=== PATIENT | female | born 1930 | race Caucasian/White ===

== ENCOUNTER 2016-10-26 21:09 | Inpatient (IN) | payer MEDICARE, OTHER ==
[2016-10-26] MEDS ORDERED: ACETAMINOPHEN IV (For NPO) 1,000 MG in EMPTY BAG 1 BAG IVPB STA (21:50)
[2016-10-26] MEDS ORDERED: IPRATROPIUM-ALBUTEROL 3 ML NEB INHALATION STA (21:53)
[2016-10-26] MEDS: SODIUM CHLORIDE 0.9% 500 ML IV SCH (21:59)
--- NOTE | 2016-10-26 22:00 | ED ---
General Adult HPI - General Chief complaint: Altered Mental Status Stated complaint: Altered mental status Time Seen by Provider: 10/26/16 21:25 Source: patient, EMS, RN notes reviewed Mode of arrival: EMS Limitations: altered mental status - History of Present Illness Initial comments: Patient is a pleasant 86-year-old female presenting to the emergency department for not feeling well. Patient is not forthcoming information and is a poor historian. Patient reportedly did have fever prior to arrival. Patient does admit to having somewhat of a cough. Patient questions if she was recently in the hospital. - Related Data Home Medications Medication Instructions Recorded Confirmed Aspirin EC [Ecotrin] 81 mg PO DAILY 12/11/14 10/26/16 Atorvastatin [Lipitor] 20 mg PO HS 12/11/14 10/26/16 Gabapentin [Neurontin] 300 mg PO TID 12/11/14 10/26/16 HYDROcodone/APAP 10-325MG [[place] 1 tab PO QID 12/11/14 10/26/16 10] Montelukast [Singulair] 10 mg PO HS 12/11/14 10/26/16 Multivitamins, Thera [Theragran] 1 each PO DAILY@1200 12/11/14 10/26/16 Omeprazole [PriLOSEC] 20 mg PO DAILY 12/11/14 10/26/16 Timolol 0.25% Ophth Soln [Timoptic] 1 drop BOTH EYES DAILY 12/11/14 10/26/16 rOPINIRole HCL [Requip] 1 mg PO DAILY 12/11/14 10/26/16 Acetaminophen Tab [Tylenol Tab] 650 mg PO Q6H PRN 10/26/16 10/26/16 Allevyn Patch 1 patch TOPICAL Q12H 10/26/16 10/26/16 Ammonium Lactate Lotion 1 applic TOPICAL BID 10/26/16 10/26/16 [Lac-Hydrin 12% Lotion] Benzonatate [Tessalon Perles] 200 mg PO TID 10/26/16 10/26/16 Budesonide [Pulmicort] 1 mg INHALATION RT-BID 10/26/16 10/26/16 Chlorthalidone [Hygroton] 25 mg PO DAILY 10/26/16 10/26/16 Clindamycin HCl 300 mg PO Q8H 10/26/16 10/26/16 Dimethicone/Zinc Oxide [Inzo Zinc 1 applic TOPICAL BID 10/26/16 10/26/16 Oxide Barrier Cream] Doxycycline Hyclate 100 mg PO BID 10/26/16 10/26/16 Insulin Aspart [NovoLOG] 15 unit SQ AC-LUNCH 10/26/16 10/26/16 Insulin Aspart [NovoLOG] 15 unit SQ AC-SUPPER 10/26/16 10/26/16 Insulin Aspart [NovoLOG] 18 unit SQ AC-BRKFST 10/26/16 10/26/16 Insulin Detemir [Levemir] 30 unit SQ BID 10/26/16 10/26/16 Ipratropium-Albuterol Nebulize 3 ml INHALATION RT-Q4H 10/26/16 10/26/16 [Duoneb 0.5 mg-3 mg/3 ml Soln] Isosorbide Mononitrate ER [Imdur] 60 mg PO DAILY 10/26/16 10/26/16 Latanoprost [Xalatan 0.005%] 1 drop BOTH EYES HS 10/26/16 10/26/16 Levothyroxine Sodium [Synthroid] 125 mcg PO DAILY 10/26/16 10/26/16 Losartan Potassium [Cozaar] 100 mg PO DAILY 10/26/16 10/26/16 Melatonin 6 mg PO HS 10/26/16 10/26/16 Metoprolol Tartrate [Lopressor] 12.5 mg PO DAILY 10/26/16 10/26/16 Nitroglycerin Sl Tabs [Nitrostat] 0.4 mg SUBLINGUAL Q5M PRN 10/26/16 10/26/16 Oxybutynin Chloride [Ditropan] 15 mg PO HS 10/26/16 10/26/16 Oyster-Maurice 500mg Tab 1 tab PO DAILY 10/26/16 10/26/16 Sennosides-Docusate Sodium 1 tab PO DAILY 10/26/16 10/26/16 [Senokot-S] amLODIPine [Norvasc] 5 mg PO DAILY 10/26/16 10/26/16 guaiFENesin [Mucinex] 600 mg PO Q12H 10/26/16 10/26/16 hydrALAZINE HCL [Apresoline] 100 mg PO Q8H 10/26/16 10/26/16 predniSONE 10 mg PO DAILY 10/26/16 10/26/16 Allergies Allergy/AdvReac Type Severity Reaction Status Date / Time amoxicillin Allergy Rash/Hives Verified 10/26/16 21:24 lisinopril Allergy Wheezing Verified 10/26/16 21:24 Sulfa (Sulfonamide Allergy Rash/Hives Verified 10/26/16 21:24 Antibiotics) alprazolam [From Xanax] AdvReac Hallucinati Verified 10/26/16 21:24 ons morphine AdvReac Hallucinati Verified 10/26/16 21:24 ons Review of Systems ROS Statement: Those systems with pertinent positive or pertinent negative responses have been documented in the HPI. ROS Other: All systems not noted in ROS Statement are negative. Constitutional: Reports: fever Eyes: Denies: eye pain ENT: Denies: ear pain Respiratory: Reports: cough Cardiovascular: Denies: chest pain Endocrine: Reports: fatigue Gastrointestinal: Denies: abdominal pain Genitourinary: Denies: dysuria Musculoskeletal: Denies: back pain Skin: Denies: rash Neurological: Reports: weakness Past Medical History Past Medical History: Asthma, Cancer, COPD, Diabetes Mellitus, Eye Disorder, GERD/Reflux, Hyperlipidemia, Hypertension, Sleep Apnea/CPAP/BIPAP, Thyroid Disorder Additional Past Medical History / Comment(s): HX OF UTERINE CANCER, SLEEP APNEA (DOES NOT USE MACHINE), OXYGEN 2L AT HS, STRESS INCONTINENCE-WEARS DEPENDS, DAUGHTER STATES SHE HAS A SORE BY RECTAL AREA History of Any Multi-Drug Resistant Organisms: MRSA, None Reported Date of last positivie culture/infection: 12/11/2014 MDRO Source:: BRONCH WASH Past Surgical History: Heart Catheterization With Stent, Hysterectomy, Joint Replacement Additional Past Surgical History / Comment(s): BILAT KELEY AND TKA Past Anesthesia/Blood Transfusion Reactions: No Reported Reaction Date of Last Stent Placement:: Past Psychological History: No Psychological Hx Reported Smoking Status: Never smoker Past Alcohol Use History: Rare Past Drug Use History: None Reported - Past Family History Daughter(s) Family Medical History: Cancer Additional Family Medical History / Comment(s): UTERINE CA Son(s) Family Medical History: Cancer Additional Family Medical History / Comment(s): LUNG CA Sister(s) Family Medical History: Cancer Additional Family Medical History / Comment(s): LIVER CA General Exam Limitations: altered mental status General appearance: other (Drowsy but arousable to answer simple questions and follow simple commands) Head exam: Present: atraumatic Eye exam: Present: normal appearance, PERRL ENT exam: Present: normal oropharynx Neck exam: Present: normal inspection Respiratory exam: Present: wheezes Cardiovascular Exam: Present: regular rate, normal rhythm GI/Abdominal exam: Present: soft. Absent: tenderness Extremities exam: Present: normal inspection Neurological exam: Present: alert, CN II-XII intact Expanded Patient oriented to: Present: person, place. Absent: time Cranial nerves: EOM's Intact: Normal Motor strength exam: RUE: 5, LUE: 5, RLE: 5, LLE: 5 Eye Response: (4) open spontaneously Motor Response: (6) obeys commands Verbal Response: (4) confused conversation Psychiatric exam: Present: normal affect, normal mood Skin exam: Absent: rash Course Vital Signs 10/26/16 10/26/16 10/26/16 21:33 22:17 22:24 Temperature 99.4 F Pulse Rate 94 94 94 Respiratory 20 Rate Blood Pressure 95/44 O2 Sat by Pulse 92 L Oximetry 10/26/16 23:16 Temperature Pulse Rate 95 Respiratory 22 Rate Blood Pressure 100/44 O2 Sat by Pulse 93 L Oximetry EKG Findings - EKG Comments: EKG Findings:: Sinus rhythm at 88. CT 1:30. QRS 96. QT 374. QTC 452. Normal axis. LVH with repolarization change. Medical Decision Making - Medical Decision Making Patient reevaluated and not significantly changed. Daughter updated on results and plan. Case was discussed in detail with Dr. Valadez, who will admit for Dr. Hollis. Patient does meet sepsis criteria diagnosed at 11:50 PM. IV antibiotics will be started. - Lab Data Result diagrams: 10/26/16 22:15 10/26/16 22:15 Lab Results 10/26/16 10/26/16 10/26/16 Range/Units 22:05 22:15 22:15 WBC (3.8-10.6) k/uL RBC 4.04 (3.80-5.40) m/uL Hgb 10.4 L (11.4-16.0) gm/dL Hct 34.0 (34.0-46.0) % MCV 84.1 (80.0-100.0) fL MCH 25.8 (25.0-35.0) pg MCHC 30.7 L (31.0-37.0) g/dL RDW 18.6 H (11.5-15.5) % Plt Count 98 L (150-450) k/uL Neutrophils % 95 % Lymphocytes % 3 % Monocytes % 2 % Eosinophils % 0 % Basophils % 0 % Neutrophils # 26.5 H (1.3-7.7) k/uL Lymphocytes # 0.8 L (1.0-4.8) k/uL Monocytes # 0.5 (0-1.0) k/uL Eosinophils # 0.0 (0-0.7) k/uL Basophils # 0.0 (0-0.2) k/uL Manual Slide Review Performed Hypochromasia Slight Anisocytosis Slight PT (9.0-12.0) sec INR (<1.1) APTT (22.0-30.0) sec Sodium (137-145) mmol/L Potassium (3.5-5.1) mmol/L Chloride (98-107) mmol/L Carbon Dioxide (22-30) mmol/L Anion Gap mmol/L BUN (7-17) mg/dL Creatinine (0.52-1.04) mg/dL Est GFR (MDRD) Af Amer (>60 ml/min/1.73 sqM) Est GFR (MDRD) Non-Af (>60 ml/min/1.73 sqM) Glucose (74-99) mg/dL Plasma Lactic Acid Thomas 1.4 (0.7-2.0) mmol/L Calcium (8.4-10.2) mg/dL Total Bilirubin (0.2-1.3) mg/dL AST (14-36) U/L ALT (9-52) U/L Alkaline Phosphatase (38-126) U/L Total Creatine Kinase <20 L (30-135) U/L CK-MB (CK-2) 0.3 (0.0-2.4) ng/mL CK-MB (CK-2) Rel Index 0.0 Troponin I 0.080 H* (0.000-0.034) ng/mL Total Protein (6.3-8.2) g/dL Albumin (3.5-5.0) g/dL Cortisol ug/dL 02/20/17 02/20/17 Range/Units 22:15 22:15 WBC (3.8-10.6) k/uL RBC (3.80-5.40) m/uL Hgb (11.4-16.0) gm/dL Hct (34.0-46.0) % MCV (80.0-100.0) fL MCH (25.0-35.0) pg MCHC (31.0-37.0) g/dL RDW (11.5-15.5) % Plt Count (150-450) k/uL Neutrophils % % Lymphocytes % % Monocytes % % Eosinophils % % Basophils % % Neutrophils # (1.3-7.7) k/uL Lymphocytes # (1.0-4.8) k/uL Monocytes # (0-1.0) k/uL Eosinophils # (0-0.7) k/uL Basophils # (0-0.2) k/uL Manual Slide Review Hypochromasia Anisocytosis PT 11.3 (9.0-12.0) sec INR 1.1 (<1.1) APTT 24.3 (22.0-30.0) sec Sodium 138 (137-145) mmol/L Potassium 5.9 H (3.5-5.1) mmol/L Chloride 101 (98-107) mmol/L Carbon Dioxide 30 (22-30) mmol/L Anion Gap 7 mmol/L BUN 33 H (7-17) mg/dL Creatinine 1.20 H (0.52-1.04) mg/dL Est GFR (MDRD) Af Amer 51 (>60 ml/min/1.73 sqM) Est GFR (MDRD) Non-Af 42 (>60 ml/min/1.73 sqM) Glucose 160 H (74-99) mg/dL Plasma Lactic Acid Thomas (0.7-2.0) mmol/L Calcium 8.8 (8.4-10.2) mg/dL Total Bilirubin 1.2 (0.2-1.3) mg/dL AST 37 H (14-36) U/L ALT 23 (9-52) U/L Alkaline Phosphatase 59 (38-126) U/L Total Creatine Kinase (30-135) U/L CK-MB (CK-2) (0.0-2.4) ng/mL CK-MB (CK-2) Rel Index Troponin I (0.000-0.034) ng/mL Total Protein 5.0 L (6.3-8.2) g/dL Albumin 2.5 L (3.5-5.0) g/dL Cortisol 18 ug/dL - Radiology Data Radiology results: report reviewed (Computed tomography scan of the brain shows atrophy and chronic small vessel disease. 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
[2016-10-26 22:53] LABS: Anisocytosis Slight; Basophils % (A) 0 %; CH 25.9; CHCM 30.9; Eosinophils % (A) 0 %; HGB 10.4 gm/dL (11.4-16.0); Hypochromasia Slight; Luc # (Auto) 0.06; Luc % (Auto) 0; Lymphocytes # (A) 0.8 k/uL (1.0-4.8); Lymphocytes % (A) 3 %; MCH 25.8 pg (25.0-35.0); MCHC 30.7 g/dL (31.0-37.0); MCV 84.1 fL (80.0-100.0); Mean Platelet Volume 7.6; Monocytes # (A) 0.5 k/uL (0-1.0); Monocytes % (A) 2 %; Neutrophils # (A) 26.5 k/uL (1.3-7.7); Neutrophils % (A) 95 %; RBC 4.04 m/uL (3.80-5.40); RDW 18.6 % (11.5-15.5); WBC (Perox) 28.35
[2016-10-26 22:56] LABS: Creatine Kinase <20 U/L (30-135); INR 1.1 (<1.1); Partial Thromboplastin Time 24.3 sec (22.0-30.0); Prothrombin Time 11.3 sec (9.0-12.0)
[2016-10-26 22:59] LABS: Calcium 8.8 mg/dL (8.4-10.2); Total Bilirubin 1.2 mg/dL (0.2-1.3)
[2016-10-26 23:02] LABS: Potassium 5.9 mmol/L (3.5-5.1)
[2016-10-26 23:09] LABS: Creatine Kinase MB 0.3 ng/mL (0.0-2.4)
[2016-10-26 23:17] LABS: Manual Review Performed
--- NOTE | 2016-10-26 23:26 | XR ---
EXAMINATION TYPE: XR chest 2V DATE OF EXAM: 10/26/2016 11:21 PM COMPARISON: 10/06/2016 HISTORY: Fever TECHNIQUE: Frontal and lateral views of the chest are obtained. FINDINGS: There are patchy infiltrates in both lower lobes and worse on the right side. There is mil d pulmonary congestion. Heart is enlarged. Thoracic aorta is atheromatous. There are chest leads. The re is blunting of costophrenic angles. IMPRESSION: There is evidence for combined lower lobe pneumonia and mild heart failure. This is new compared to old chest x-ray. Cardiomegaly. Small pleural effusions.
--- NOTE | 2016-10-26 23:29 | CT ---
EXAMINATION TYPE: CT brain wo con DATE OF EXAM: 10/26/2016 11:13 PM COMPARISON: 10/06/2012 HISTORY: Weakness and altered mental status. CT DLP: 909.40 mGycm Automated exposure control for dose reduction was used. FINDINGS: There is cerebral cortical atrophy. There is patchy hypodensity in the periventricular white matter. There is mild hypodensity in the right occipital lobe cortex. There is mild enlargement of the ventri cles. Calvarium is intact. There is mild mucosal thickening in the left maxillary sinus. IMPRESSION: Cerebral atrophy and chronic small vessel ischemia. There is probably a right occipital lobe infarct that is new compared to the old CT scan but the age of this is not clear.
[2016-10-26 23:49] LABS: Appearance,Urine Clear (Clear); Bilirubin,Urine Negative (Negative); Glucose,Urine (UA) 3+ (Negative); Ketones,Urine Negative (Negative); Leukocyte Esterase,Urine Negative (Negative); Nitrite,Urine Negative (Negative); Protein,Urine Trace (Negative); Specific Gravity,Urine 1.011 (1.001-1.035); UA Billing (MACRO vs. MICRO) CHEM; Urobilinogen,Urine <2.0 mg/dL (<2.0)
[2016-10-26] MEDS ORDERED: AZTREONAM 2 GM in SODIUM CHLORIDE 0.9% 100 ML IVPB STA (23:51)
[2016-10-26] MEDS ORDERED: PNEUMONIA PROTOCOL UTILIZED 1 EACH MISC PO PRN (23:51)
[2016-10-26] MEDS ORDERED: LEVOFLOXACIN 750MG-D5W PMX 750 MG in DEXTROSE/WATER 1 150ML.BAG IVPB STA (23:51)
[2016-10-26] MEDS ORDERED: IPRATROPIUM-ALBUTEROL 3 ML NEB INHALATION PRN (23:51)
[2016-10-27] MEDS: SODIUM CHLORIDE 0.9% 500 ML IV SCH
[2016-10-27] MEDS: SODIUM CHLORIDE 0.9% 1,000 ML IV SCH ×2 (00:16→11:15)
[2016-10-27 01:58] LABS: Glucose,Whole Blood 201 mg/dL (75-99)
[2016-10-27 02:30] LABS: WBC 28.4 k/uL (3.8-10.6)
[2016-10-27 04:03] LABS: Creatine Kinase <20 U/L (30-135)
[2016-10-27] MEDS: HEPARIN SODIUM,PORCINE 5,000 UNIT/ML 1 ML VIAL SQ SCH ×2 (04:12→09:01)
[2016-10-27 04:16] LABS: Creatine Kinase MB 0.5 ng/mL (0.0-2.4)
[2016-10-27 04:18] LABS: Troponin I 0.062 ng/mL (0.000-0.034)
[2016-10-27 05:27] VITALS: BMI 34.2
[2016-10-27 07:52] LABS: Glucose,Whole Blood 235 mg/dL (75-99)
[2016-10-27] MEDS ORDERED: AZTREONAM 2 GM in SODIUM CHLORIDE 0.9% 100 ML IVPB SCH (08:00)
[2016-10-27] MEDS ORDERED: IPRATROPIUM-ALBUTEROL 3 ML NEB INHALATION SCH (08:00)
[2016-10-27] MEDS ORDERED: ACETAMINOPHEN TAB 325 MG TAB PO PRN (08:48)
[2016-10-27] MEDS ORDERED: NITROGLYCERIN SL TABS 0.4 MG TAB SUBLINGUAL PRN (08:48)
[2016-10-27] MEDS ORDERED: [UNRECOGNIZED DRUG - OTHER] TOPICAL SCH (09:00)
[2016-10-27] MEDS ORDERED: NON-FORMULARY DRUG (Dimethicone/Zinc Oxide [Inzo Zinc Oxide Barrier Cream] 1 APPLIC) TOPICAL SCH (09:00)
[2016-10-27] MEDS ORDERED: predniSONE 10 MG TAB PO SCH (09:00)
[2016-10-27] MEDS: INSULIN DETEMIR 100 UNIT/ML 10 ML VIAL SQ SCH ×2 (09:15→22:04)
[2016-10-27] MEDS: SENNOSIDES-DOCUSATE SODIUM 1 EACH TAB PO SCH (09:15)
[2016-10-27] MEDS: HYDROcodone/APAP 10-325MG 1 EACH TAB PO PRN (09:16)
[2016-10-27] MEDS: AMMONIUM LACTATE 12% LOTION 225 GM BTL TOPICAL SCH ×2 (09:16→22:03)
[2016-10-27] MEDS: INSULIN LISPRO (humaLOG) 300 UNIT/3 ML VIAL SQ SCH ×6 (09:19→22:05)
[2016-10-27 10:30] LABS: Creatine Kinase <20 U/L (30-135)
[2016-10-27] MEDS: MULTIVITAMINS, THERA 1 EACH TAB PO SCH (10:40)
[2016-10-27] MEDS: BENZONATATE 100 MG CAP PO SCH ×3 (10:40→22:06)
[2016-10-27] MEDS: hydrALAZINE HCL 50 MG TAB PO SCH ×3 (10:41→16:19)
[2016-10-27] MEDS: TIMOLOL 0.25% OPHTH DROPS 5 ML BTL BOTH EYES SCH (10:41)
[2016-10-27] MEDS: guaiFENesin 600 MG TABLET.ER PO SCH ×2 (10:41→22:04)
[2016-10-27] MEDS: LOSARTAN 50 MG TAB PO SCH (10:42)
[2016-10-27] MEDS: GABAPENTIN 300 MG CAP PO SCH ×3 (10:42→22:06)
[2016-10-27] MEDS: ASPIRIN 81 MG CHEW PO SCH (10:42)
[2016-10-27] MEDS: ISOSORBIDE MONONITRATE ER 60 MG TAB.ER.24H PO SCH (10:42)
[2016-10-27] MEDS: LEVOTHYROXINE 125 MCG TAB PO SCH (10:42)
[2016-10-27] MEDS: METOPROLOL TARTRATE 12.5 MG TAB PO SCH (10:43)
[2016-10-27] MEDS: amLODIPine 5 MG TAB PO SCH ×2 (10:44→10:57)
[2016-10-27 10:53] LABS: Troponin I 0.048 ng/mL (0.000-0.034)
[2016-10-27] MEDS: CALCIUM CARBONATE 500 MG CHEWABLE PO SCH (10:53)
[2016-10-27] MEDS: PANTOPRAZOLE 40 MG TABLET PO SCH (10:53)
[2016-10-27 11:08] LABS: Hemoglobin A1C 8.8 % (4.2-6.1)
[2016-10-27] MEDS ORDERED: SODIUM POLYSTYRENE SULFONATE 15 GM/60 ML BOTTLE PO STA (11:11)
[2016-10-27] MEDS ORDERED: CEFEPIME 1 GM in SODIUM CHLORIDE 0.9% 50 ML IVPB SCH (11:15)
[2016-10-27 11:18] LABS: Anisocytosis Slight; CH 25.5; CHCM 28.8; HCT 30.9 % (34.0-46.0); HDW 2.44; HGB 9.2 gm/dL (11.4-16.0); Hypochromasia Marked; MCH 26.4 pg (25.0-35.0); MCHC 29.7 g/dL (31.0-37.0); MCV 88.8 fL (80.0-100.0); Mean Platelet Volume 9.3; RBC 3.47 m/uL (3.80-5.40); RDW 18.1 % (11.5-15.5); WBC 16.5 k/uL (3.8-10.6)
[2016-10-27 11:22] LABS: Calcium 8.5 mg/dL (8.4-10.2); Total Bilirubin 0.9 mg/dL (0.2-1.3); Total Protein 4.6 g/dL (6.3-8.2)
[2016-10-27] MEDS: PROMETHAZ-COD 6.25-10 MG/5 ML 5 ML CUP PO PRN ×2 (11:23→22:06)
[2016-10-27] MEDS: methylPREDNISolone SOD SUCCI 40 MG/ML 1 ML VIAL IV SCH ×2 (11:24→16:19)
[2016-10-27] MEDS: IV VANCOMYCIN PER PHARMACY 1 EACH MISC MISCELLANE SCH (11:30)
[2016-10-27 11:32] LABS: Potassium 4.1 mmol/L (3.5-5.1)
[2016-10-27 11:40] LABS: Glucose,Whole Blood 211 mg/dL (75-99)
[2016-10-27] MEDS ORDERED: VANCOMYCIN 2,000 MG in SODIUM CHLORIDE 0.9% 500 ML IVPB ONE (12:00)
[2016-10-27] MEDS: IPRATROPIUM-ALBUTEROL 3 ML NEB INHALATION SCH ×4 (12:01→23:24)
--- NOTE | 2016-10-27 13:16 | P.HPIM ---
History of Present Illness H&P Date: 10/27/16 Chief Complaint: Altered mental status This is an 86-year-old female patient of Dr. 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 She was recently hospitalized at [facility] from 10/10/2016 through 10/19/2016. She was treated for urinary tract infection , acute coronary syndrome, COPD exacerbation. She was then discharged to [facility] for subacute rehab. Patient was found to have mental status changes and was sent to [facility] emergency center for evaluation. It was noted she also had a fever at the detention. She was hypotensive in the emergency center with leukocytosis of 28.4. CAT scan of the brain showed atrophy and chronic small vessel disease. 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 Chest x-ray showed lower lobe infiltrate and possible mild heart failure and mild pleural effusion. Patient was admitted to medical floor for pneumonia, sepsis and altered mental status. Review of Systems ROS unobtainable: due to mental status Past Medical History Past Medical History: Asthma, Cancer, Heart Failure, COPD, Dementia, Diabetes Mellitus, Eye Disorder, GERD/Reflux, Hyperlipidemia, Hypertension, Renal Disease , Sleep Apnea/CPAP/BIPAP, Thyroid Disorder, Vascular Disorder Additional Past Medical History / Comment(s): HX OF UTERINE CANCER, SLEEP APNEA (DOES NOT USE MACHINE), OXYGEN 3L , STRESS INCONTINENCE-WEARS DEPENDS, chronic kidney disease stage III, vascular dementia, vocal cord dysfunction, secondary thrombocytopenia, chronic diastolic heart failure History of Any Multi-Drug Resistant Organisms: MRSA Date of last positivie culture/infection: 12/11/14 MDRO Source:: BRONCH WASH Past Surgical History: Appendectomy, Cholecystectomy, Heart Catheterization With Stent, Hysterectomy, Joint Replacement Additional Past Surgical History / Comment(s): BILAT KEELY AND TKA, bilateral cataract extraction and intraocular lens transplants, blepharoplasty Past Anesthesia/Blood Transfusion Reactions: No Reported Reaction Date of Last Stent Placement:: Past Psychological History: Depression Smoking Status: Never smoker Past Alcohol Use History: Rare Additional Past Alcohol Use History / Comment(s): Patient has been exposed to secondhand smoke most of her life. She drinks alcohol socially and rarely. No history of alcohol abuse. She is and lives with one of her daughters. She has a CPAP machine, elevated toilet seat, walker, nebulizer and home oxygen. Past Drug Use History: None Reported - Past Family History Daughter(s) Family Medical History: Cancer Additional Family Medical History / Comment(s): UTERINE CA Son(s) Family Medical History: Cancer Additional Family Medical History / Comment(s): LUNG CA Sister(s) Family Medical History: Cancer Additional Family Medical History / Comment(s): LIVER CA Father Additional Family Medical History / Comment(s): Father at age 80 from myocardial infarction. Mother Additional Family Medical History / Comment(s): Other at age 92 from heart failure. Medications and Allergies Home Medications Medication Instructions Recorded Confirmed Type Aspirin EC [Ecotrin] 81 mg PO DAILY 12/11/14 10/26/16 History Atorvastatin [Lipitor] 20 mg PO HS 12/11/14 10/26/16 History Gabapentin [Neurontin] 300 mg PO TID 12/11/14 10/26/16 History HYDROcodone/APAP 10-325MG [[place] 1 tab PO QID 12/11/14 10/26/16 History 10] Montelukast [Singulair] 10 mg PO HS 12/11/14 10/26/16 History Multivitamins, Thera [Theragran] 1 each PO DAILY@1200 12/11/14 10/26/16 History Omeprazole [PriLOSEC] 20 mg PO DAILY 12/11/14 10/26/16 History Timolol 0.25% Ophth Soln [Timoptic] 1 drop BOTH EYES DAILY 12/11/14 10/26/16 History rOPINIRole HCL [Requip] 1 mg PO DAILY 12/11/14 10/26/16 History Acetaminophen Tab [Tylenol Tab] 650 mg PO Q6H PRN 10/26/16 10/26/16 History Allevyn Patch 1 patch TOPICAL Q12H 10/26/16 10/26/16 History Ammonium Lactate Lotion 1 applic TOPICAL BID 10/26/16 10/26/16 History [Lac-Hydrin 12% Lotion] Benzonatate [Tessalon Perles] 200 mg PO TID 10/26/16 10/26/16 History Budesonide [Pulmicort] 1 mg INHALATION RT-BID 10/26/16 10/26/16 History Chlorthalidone [Hygroton] 25 mg PO DAILY 10/26/16 10/26/16 History Clindamycin HCl 300 mg PO Q8H 10/26/16 10/26/16 History Dimethicone/Zinc Oxide [Inzo Zinc 1 applic TOPICAL BID 10/26/16 10/26/16 History Oxide Barrier Cream] Doxycycline Hyclate 100 mg PO BID 10/26/16 10/26/16 History Insulin Aspart [NovoLOG] 15 unit SQ AC-LUNCH 10/26/16 10/26/16 History Insulin Aspart [NovoLOG] 15 unit SQ AC-SUPPER 10/26/16 10/26/16 History Insulin Aspart [NovoLOG] 18 unit SQ AC-BRKFST 10/26/16 10/26/16 History Insulin Detemir [Levemir] 30 unit SQ BID 10/26/16 10/26/16 History Ipratropium-Albuterol Nebulize 3 ml INHALATION RT-Q4H 10/26/16 10/26/16 History [Duoneb 0.5 mg-3 mg/3 ml Soln] Isosorbide Mononitrate ER [Imdur] 60 mg PO DAILY 10/26/16 10/26/16 History Latanoprost [Xalatan 0.005%] 1 drop BOTH EYES HS 10/26/16 10/26/16 History Levothyroxine Sodium [Synthroid] 125 mcg PO DAILY 10/26/16 10/26/16 History Losartan Potassium [Cozaar] 100 mg PO DAILY 10/26/16 10/26/16 History Melatonin 6 mg PO HS 10/26/16 10/26/16 History Metoprolol Tartrate [Lopressor] 12.5 mg PO DAILY 10/26/16 10/26/16 History Nitroglycerin Sl Tabs [Nitrostat] 0.4 mg SUBLINGUAL Q5M PRN 10/26/16 10/26/16 History Oyster-Maurice 500mg Tab 1 tab PO DAILY 10/26/16 10/26/16 History Sennosides-Docusate Sodium 1 tab PO DAILY 10/26/16 10/26/16 History [Senokot-S] amLODIPine [Norvasc] 5 mg PO DAILY 10/26/16 10/26/16 History guaiFENesin [Mucinex] 600 mg PO Q12H 10/26/16 10/26/16 History hydrALAZINE HCL [Apresoline] 100 mg PO Q8H 10/26/16 10/26/16 History predniSONE 10 mg PO DAILY 10/26/16 10/26/16 History Oxybutynin ER [Ditropan Xl] 15 mg PO HS 10/27/16 10/27/16 History Allergies Allergy/AdvReac Type Severity Reaction Status Date / Time amoxicillin Allergy Rash/Hives Verified 10/26/16 21:24 lisinopril Allergy Wheezing Verified 10/26/16 21:24 Sulfa (Sulfonamide Allergy Rash/Hives Verified 10/26/16 21:24 Antibiotics) alprazolam [From Xanax] AdvReac Hallucinati Verified 10/26/16 21:24 ons morphine AdvReac Hallucinati Verified 10/26/16 21:24 ons Physical Exam Vitals: Vital Signs Temp Pulse Pulse Resp BP BP Pulse Ox 10/27/16 08:37 76 10/27/16 07:00 97.7 F 72 21 110/73 98 10/27/16 05:58 80 10/27/16 05:47 76 10/27/16 03:15 72 20 10/27/16 02:03 97.8 F 72 20 108/48 94 L 10/27/16 01:51 94 L 10/27/16 01:06 98.6 F 72 20 98/45 96 10/27/16 00:15 98.5 F 78 18 117/49 96 Intake and Output 10/26/16 10/27/16 10/27/16 22:59 06:59 14:59 Intake Total 100 Balance 100 Intake: Oral 100 Other: # Voids 1 Weight 79.5 kg Gen: This is a obese 86-year-old female. HEENT: Head is atraumatic, normocephalic. Pupils equal, round. Sclerae is anicteric. NECK: Supple. No JVD. No lymphadenopathy. No thyromegaly. LUNGS: Scattered rhonchi throughout.. No intercostal retractions. HEART: Regular rate and rhythm. Systolic murmur. ABDOMEN: Soft. Bowel sounds are present. No masses. No tenderness. EXTREMITIES: Trace bilateral pedal edema. No calf tenderness. NEUROLOGICAL: Patient is awake, alert and oriented x2. Cranial nerves 2 through 12 are grossly intact. Results CBC & Chem 7: 10/27/16 09:28 10/27/16 09:28 Labs: Abnormal Lab Results - Last 24 Hours (Table) 10/27/16 10/27/16 10/27/16 Range/Units 01:55 03:23 07:49 POC Glucose (mg/dL) 201 H 235 H (75-99) mg/dL Total Creatine Kinase <20 L (30-135) U/L Troponin I 0.062 H* (0.000-0.034) ng/mL Thrombosis Risk Factor Assmnt - DVT/VTE Prophylaxis DVT/VTE Prophylaxis: Pharmacologic Prophylaxis ordered - Choose All That Apply Any of the Below Risk Factors Present?: Yes Each Factor Represents 1 point: Abnormal pulmonary function (COPD), Medical pt on bed rest, Obesity (BMI >25), Swollen legs (current) Other Risk Factors: Yes Each Risk Factor Represents 3 Points: Age 75 years or older Thrombosis Risk Factor Assessment Total Risk Factor Score: 7 Thrombosis Risk Factor Assessment Level: High Risk Assessment and Plan Plan: 1. Metabolic encephalopathy with pneumonia and sepsis along with mild heart failure and small pleural effusions. Continue cefepime, Levaquin and vancomycin , DuoNeb treatments every 4 hours scheduled and as needed, Tessalon Perles 3 times daily, Pulmicort twice daily, Mucinex and Phenergan with codeine, Singulair. Solu-Medrol 40 mg every 8 hours. Consult with pulmonary medicine 2. Recent urinary tract infection. Patient was on clindamycin and doxycycline , discontinued for now. 3. Chronic diastolic heart failure. 4. COPD with mild exacerbation and history of recent MRSA pneumonia, continue as in #1. 5. Diabetes mellitus type 2, insulin requiring with diabetic neuropathy. Continue Levemir twice daily, scheduled Humalog and Humalog scale. Continue gabapentin. 6. Hyperlipidemia. Continue Lipitor. 7. Hypertension, hypertensive cardiovascular disease. Continue Norvasc, hydralazine, Cozaar, Lopressor. [place] on hold. 8. Glaucoma. Continue eyedrops. 9. Hyperkalemia status post Kayexalate. 10. Elevated troponins with recent acute coronary syndrome. Continue aspirin 81 mg daily, Lipitor 20 mg at bedtime, metoprolol 12.5 mg daily 11. Chronic kidney disease stage III. 12. Vascular dementia without behavioral disturbance, stable. 13. Secondary thrombocytopenia. Heparin will be discontinued. 14. Major depressive disorder, recurrent. 15. DVT prophylaxis. Heparin discontinued due to thrombocytopenia. SCDs and MARIA ALEJANDRA hose. 16. Gastrointestinal prophylaxis. Continue Protonix. Patient will be admitted to the hospital for a minimum of 2 night stay. Discharge plan: Return to [facility] Impression and plan of care have been directed as dictated by the signing physician. Sherron Benton nurse practitioner acting as scribe for signing physician. Time with Patient: Greater than 30
--- NOTE | 2016-10-27 13:54 | XR ---
EXAMINATION TYPE: XR chest 2V DATE OF EXAM: 10/27/2016 1:49 PM COMPARISON: 10/26/2016 HISTORY: Shortness of breath TECHNIQUE: Frontal and lateral views of the chest are obtained. FINDINGS: Scattered senescent parenchymal changes noted. Hyperinflation compatible with COPD. Pulmonary venous congestion with cardiomegaly and scattered infiltrates. No sizable effusions. Mediastinal structures are stable and grossly unremarkable. No evidence for hilar prominence. Degenerative changes dorsal spine. IMPRESSION: 1. The findings may reflect pneumonia however a degree of congestive failure is difficult to exclude. Correlate clinically and progress studies are recommended.
[2016-10-27 16:32] LABS: Glucose,Whole Blood 87 mg/dL (75-99)
[2016-10-27] MEDS: BUDESONIDE 1 MG/2 ML NEBU INHALATION SCH (19:51)
[2016-10-27 21:19] LABS: Glucose,Whole Blood 213 mg/dL (75-99)
[2016-10-27] MEDS: ATORVASTATIN 20 MG TAB PO SCH (22:03)
[2016-10-27] MEDS: MONTELUKAST 10 MG TAB PO SCH (22:05)
[2016-10-27] MEDS: LATANOPROST 0.005% OPHTH DROPS 2.5 ML BTL BOTH EYES SCH (22:05)
[2016-10-27] MEDS: MELATONIN 3 MG TABLET PO SCH (22:05)
[2016-10-27] MEDS: OXYBUTYNIN 15 MG TAB.ER.24 PO SCH (22:06)
[2016-10-27] MEDS ORDERED: LEVOFLOXACIN 750MG-D5W PMX 750 MG in DEXTROSE/WATER 1 150ML.BAG IVPB SCH (23:00)
[2016-10-28] MEDS: methylPREDNISolone SOD SUCCI 40 MG/ML 1 ML VIAL IV SCH ×4 (00:04→23:59)
[2016-10-28] MEDS: hydrALAZINE HCL 50 MG TAB PO SCH ×4 (00:39→23:59)
[2016-10-28] MEDS: PROMETHAZ-COD 6.25-10 MG/5 ML 5 ML CUP PO PRN (02:22)
[2016-10-28] MEDS: HYDROcodone/APAP 10-325MG 1 EACH TAB PO PRN ×2 (02:26→21:18)
[2016-10-28] MEDS: IPRATROPIUM-ALBUTEROL 3 ML NEB INHALATION SCH ×6 (04:08→20:41)
[2016-10-28] MEDS: LEVOTHYROXINE 125 MCG TAB PO SCH (06:23)
[2016-10-28 07:31] LABS: Glucose,Whole Blood 221 mg/dL (75-99)
[2016-10-28] MEDS: INSULIN LISPRO (humaLOG) 300 UNIT/3 ML VIAL SQ SCH ×7 (07:59→21:23)
[2016-10-28] MEDS: BENZONATATE 100 MG CAP PO SCH ×3 (08:01→21:13)
[2016-10-28] MEDS: GABAPENTIN 300 MG CAP PO SCH ×3 (08:02→21:13)
[2016-10-28] MEDS: ISOSORBIDE MONONITRATE ER 60 MG TAB.ER.24H PO SCH (08:02)
[2016-10-28] MEDS: TIMOLOL 0.25% OPHTH DROPS 5 ML BTL BOTH EYES SCH (08:02)
[2016-10-28] MEDS: LOSARTAN 50 MG TAB PO SCH (08:02)
[2016-10-28] MEDS: METOPROLOL TARTRATE 12.5 MG TAB PO SCH (08:02)
[2016-10-28] MEDS: PANTOPRAZOLE 40 MG TABLET PO SCH (08:04)
[2016-10-28] MEDS: CEFEPIME 1 GM in SODIUM CHLORIDE 0.9% 50 ML IVPB SCH (08:04)
[2016-10-28] MEDS: amLODIPine 5 MG TAB PO SCH (08:05)
[2016-10-28] MEDS: ASPIRIN 81 MG CHEW PO SCH (08:05)
[2016-10-28] MEDS: guaiFENesin 600 MG TABLET.ER PO SCH ×2 (08:05→21:13)
[2016-10-28] MEDS: AMMONIUM LACTATE 12% LOTION 225 GM BTL TOPICAL SCH ×2 (08:05→21:18)
[2016-10-28] MEDS: INSULIN DETEMIR 100 UNIT/ML 10 ML VIAL SQ SCH ×2 (08:14→21:22)
[2016-10-28] MEDS: SENNOSIDES-DOCUSATE SODIUM 1 EACH TAB PO SCH (08:14)
[2016-10-28] MEDS: BUDESONIDE 1 MG/2 ML NEBU INHALATION SCH ×2 (09:23→19:16)
[2016-10-28 09:49] LABS: Anisocytosis Slight; CH 26.4; CHCM 30.2; HCT 29.5 % (34.0-46.0); HDW 2.53; HGB 8.8 gm/dL (11.4-16.0); Hypochromasia Moderate; MCH 26.1 pg (25.0-35.0); MCHC 29.8 g/dL (31.0-37.0); MCV 87.7 fL (80.0-100.0); Mean Platelet Volume 10.3; RBC 3.36 m/uL (3.80-5.40); WBC 12.2 k/uL (3.8-10.6)
[2016-10-28 10:12] LABS: ALT 17 U/L (9-52); AST 15 U/L (14-36); Alkaline Phosphatase 65 U/L (38-126); Anion Gap 13 mmol/L; Blood Urea Nitrogen 34 mg/dL (7-17); Calcium 8.2 mg/dL (8.4-10.2); Carbon Dioxide 23 mmol/L (22-30); Chloride 102 mmol/L (98-107); Glucose 228 mg/dL (74-99); Non-African American GFR(MDRD) 52 (>60 ml/min/1.73 sqM); Potassium 3.3 mmol/L (3.5-5.1); Sodium 138 mmol/L (137-145); Total Bilirubin 0.4 mg/dL (0.2-1.3); Total Protein 4.5 g/dL (6.3-8.2)
[2016-10-28] MEDS ORDERED: POTASSIUM CHLORIDE ER 20 MEQ TAB.ER PO STA (10:41)
[2016-10-28] MEDS: CALCIUM CARBONATE 500 MG CHEWABLE PO SCH (11:26)
[2016-10-28] MEDS: MULTIVITAMINS, THERA 1 EACH TAB PO SCH (11:27)
[2016-10-28] MEDS: IV VANCOMYCIN PER PHARMACY 1 EACH MISC MISCELLANE SCH (11:59)
[2016-10-28 12:12] LABS: Glucose,Whole Blood 156 mg/dL (75-99)
--- NOTE | 2016-10-28 14:32 | P.PN ---
Subjective This is an 86-year-old female patient of Dr. 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 She was recently hospitalized at [facility] from 10/10/2016 through 10/19/2016. She was treated for urinary tract infection , acute coronary syndrome, COPD exacerbation. She was then discharged to [facility] for subacute rehab. Patient was found to have mental status changes and was sent to [facility] emergency center for evaluation. It was noted she also had a fever at the alf. She was hypotensive in the emergency center with leukocytosis of 28.4. CAT scan of the brain showed atrophy and chronic small vessel disease. 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 Chest x-ray showed lower lobe infiltrate and possible mild heart failure and mild pleural effusion. Patient was admitted to medical floor for pneumonia, sepsis and altered mental status. 10/28: Patient is seen today sitting up in a chair at the bedside and is much more alert today. She apparently ate her breakfast well and had a good appetite. White count is down to 12.2, hemoglobin 8.8, platelet count 51. Potassium is low today at 3.3 and will be replaced. BUN 34 and creatinine 1.01. Blood sugars running 156-222. Objective - Vital Signs Vital signs: Vital Signs Temp 97.0 F L 10/28/16 07:00 Pulse 72 10/28/16 09:36 Resp 16 10/28/16 08:00 BP 161/72 10/28/16 07:00 Pulse Ox 96 10/28/16 07:00 Intake & Output 10/27/16 10/28/16 10/28/16 18:59 06:59 18:59 Intake Total 1140 450 Balance 1140 450 Weight 79.5 kg 81 kg Intake: IV 100 Aztreonam 2 gm In Sodium 100 Chloride 0.9% 100 ml @ 100 mls/hr IVPB Q8HR NOHEMI Rx#:[id number] Intake, IV Titration 800 Amount Cefepime 1 gm In Sodium 100 Chloride 0.9% 50 ml @ 100 mls/hr IVPB Q12HR NOHEMI Rx #:[id number] Sodium Chloride 0.9% 1, 200 000 ml @ 100 mls/hr IV . Q10H NOHEMI Rx#:[id number] Vancomycin 2,000 mg In 500 Sodium Chloride 0.9% 500 ml @ 167 mls/hr IVPB ONCE ONE Rx#:[id number] Oral 240 450 Other: # Voids 1 2 1 # Bowel Movements 1 - Exam Gen: This is a obese 86-year-old female. HEENT: Head is atraumatic, normocephalic. Pupils equal, round. Sclerae is anicteric. NECK: Supple. No JVD. No lymphadenopathy. No thyromegaly. LUNGS: Scattered rhonchi throughout.. No intercostal retractions. HEART: Regular rate and rhythm. Systolic murmur. ABDOMEN: Soft. Bowel sounds are present. No masses. No tenderness. EXTREMITIES: Trace bilateral pedal edema. No calf tenderness. NEUROLOGICAL: Patient is awake, alert and oriented x2. Cranial nerves 2 through 12 are grossly intact. - Labs CBC & Chem 7: 10/28/16 08:43 10/28/16 08:43 Labs: Abnormal Lab Results - Last 24 Hours (Table) 10/27/16 10/27/16 10/27/16 Range/Units 09:28 11:37 21:17 WBC (3.8-10.6) k/uL RBC (3.80-5.40) m/uL Hgb (11.4-16.0) gm/dL Hct (34.0-46.0) % MCHC (31.0-37.0) g/dL RDW (11.5-15.5) % Plt Count (150-450) k/uL Potassium (3.5-5.1) mmol/L BUN 33 H (7-17) mg/dL Creatinine 1.11 H (0.52-1.04) mg/dL Glucose 244 H (74-99) mg/dL POC Glucose (mg/dL) 211 H 213 H (75-99) mg/dL Calcium (8.4-10.2) mg/dL Total Protein 4.6 L (6.3-8.2) g/dL Albumin 2.3 L (3.5-5.0) g/dL 10/28/16 10/28/16 10/28/16 Range/Units 07:30 08:43 08:43 WBC 12.2 H (3.8-10.6) k/uL RBC 3.36 L (3.80-5.40) m/uL Hgb 8.8 L (11.4-16.0) gm/dL Hct 29.5 L (34.0-46.0) % MCHC 29.8 L (31.0-37.0) g/dL RDW 18.0 H (11.5-15.5) % Plt Count 51 L (150-450) k/uL Potassium 3.3 L (3.5-5.1) mmol/L BUN 34 H (7-17) mg/dL Creatinine (0.52-1.04) mg/dL Glucose 228 H (74-99) mg/dL POC Glucose (mg/dL) 221 H (75-99) mg/dL Calcium 8.2 L (8.4-10.2) mg/dL Total Protein 4.5 L (6.3-8.2) g/dL Albumin 2.3 L (3.5-5.0) g/dL Microbiology - Last 24 Hours (Table) 10/27/16 00:07 Blood Culture - Preliminary Blood No Growth after 24 hours Assessment and Plan Plan: 1. Metabolic encephalopathy with pneumonia and sepsis along with mild heart failure and small pleural effusions. Continue cefepime, Levaquin and vancomycin , DuoNeb treatments every 4 hours scheduled and as needed, Tessalon Perles 3 times daily, Pulmicort twice daily, Mucinex and Phenergan with codeine, Singulair. Solu-Medrol 40 mg every 8 hours. Consult with pulmonary medicine 2. Recent urinary tract infection. Patient was on clindamycin and doxycycline , discontinued for now. 3. Chronic diastolic heart failure. 4. COPD with mild exacerbation and history of recent MRSA pneumonia, continue as in #1. 5. Diabetes mellitus type 2, insulin requiring with diabetic neuropathy. Continue Levemir twice daily, scheduled Humalog and Humalog scale. Continue gabapentin. 6. Hyperlipidemia. Continue Lipitor. 7. Hypertension, hypertensive cardiovascular disease. Continue Norvasc, hydralazine, Cozaar, Lopressor. [place]groton on hold. 8. Glaucoma. Continue eyedrops. 9. Hyperkalemia status post Kayexalate. 10. Elevated troponins with recent acute coronary syndrome. Continue aspirin 81 mg daily, Lipitor 20 mg at bedtime, metoprolol 12.5 mg daily 11. Chronic kidney disease stage III. 12. Vascular dementia without behavioral disturbance, stable. 13. Secondary thrombocytopenia. Heparin will be discontinued. 14. Major depressive disorder, recurrent. 15. DVT prophylaxis. Heparin discontinued due to thrombocytopenia. SCDs and MARIA ALEJANDRA hose. 16. Gastrointestinal prophylaxis. Continue Protonix. Patient will be admitted to the hospital for a minimum of 2 night stay. Discharge plan: Return to [facility] Impression and plan of care have been directed as dictated by the signing physician. Sherron Benton nurse practitioner acting as scribe for signing physician. Time with Patient: Greater than 30
--- NOTE | 2016-10-28 16:25 | P.CNPUL ---
History of Present Illness Consult date: 10/28/16 Requesting physician: Vince Valadez Reason for consult: abnormal CXR/CT Chief complaint: weakness, fatigue History of present illness: this is a pleasant 86-year-old female patient who follows with Dr. Hollis is her primary care physician. she has a history of diabetes mellitus, uterine cancer, gastroesophageal reflux disease, hyperlipidemia, hypertension, coronary artery disease with previous stent placement ,hypothyroidism. She is followed by our group in regards to her pulmonary disease. She has chronic bronchial asthma. she is a lifelong nonsmoker. She does have a previous history of MRSA infection in bronchial wash back in 2014. She is also noted to have significant tracheobronchomalacia. She has had multiple admissions to [facility] family seen her there most recently. She presented here on 10/26/2016 with altered mental status. She has been residing in an extended care facility. The patient herself is a poor historian. She is unclear as to where she is at or to why she is here. Presently, she denies any worsening shortness of breath, cough or congestion. No chest pain, palpitations lightheadedness or dizziness. Her only complaint is that of lower extremity weakness. a computed tomography scan of the brain did reveal a right occipital infarct there was new from 2012. There was atrophy and chronic small vessel disease. her chest x-ray revealed evidence of bibasilar atelectasis and some mild pulmonary congestion. She has been afebrile. her initial white count was 28.4. Maintaining good O2 saturations in the mid 90s on 2 L/m. She is not tachycardic nor tachypneic. her influenza screen was negative. She had borderline troponins. Blood cultures reveal no growth to date. Review of Systems ROS unobtainable: due to mental status Past Medical History Past Medical History: Asthma, Cancer, Heart Failure, COPD, Dementia, Diabetes Mellitus, Eye Disorder, GERD/Reflux, Hyperlipidemia, Hypertension, Renal Disease , Sleep Apnea/CPAP/BIPAP, Thyroid Disorder, Vascular Disorder Additional Past Medical History / Comment(s): HX OF UTERINE CANCER, SLEEP APNEA (DOES NOT USE MACHINE), OXYGEN 3L , STRESS INCONTINENCE-WEARS DEPENDS, chronic kidney disease stage III, vascular dementia, vocal cord dysfunction, secondary thrombocytopenia, chronic diastolic heart failure History of Any Multi-Drug Resistant Organisms: MRSA Date of last positivie culture/infection: 12/11/14 MDRO Source:: BRONCH WASH Past Surgical History: Appendectomy, Cholecystectomy, Heart Catheterization With Stent, Hysterectomy, Joint Replacement Additional Past Surgical History / Comment(s): BILAT KEELY AND TKA, bilateral cataract extraction and intraocular lens transplants, blepharoplasty Past Anesthesia/Blood Transfusion Reactions: No Reported Reaction Date of Last Stent Placement:: Past Psychological History: Depression Smoking Status: Never smoker Past Alcohol Use History: Rare Additional Past Alcohol Use History / Comment(s): Patient has been exposed to secondhand smoke most of her life. She drinks alcohol socially and rarely. No history of alcohol abuse. She is and lives with one of her daughters. She has a CPAP machine, elevated toilet seat, walker, nebulizer and home oxygen. Past Drug Use History: None Reported - Past Family History Father Additional Family Medical History / Comment(s): Father at age 80 from myocardial infarction. Mother Additional Family Medical History / Comment(s): Other at age 92 from heart failure. Daughter(s) Family Medical History: Cancer Additional Family Medical History / Comment(s): UTERINE CA Son(s) Family Medical History: Cancer Additional Family Medical History / Comment(s): LUNG CA Sister(s) Family Medical History: Cancer Additional Family Medical History / Comment(s): LIVER CA Medications and Allergies Home Medications Medication Instructions Recorded Confirmed Type Aspirin EC [Ecotrin] 81 mg PO DAILY 12/11/14 10/26/16 History Atorvastatin [Lipitor] 20 mg PO HS 12/11/14 10/26/16 History Gabapentin [Neurontin] 300 mg PO TID 12/11/14 10/26/16 History HYDROcodone/APAP 10-325MG [[place] 1 tab PO QID 12/11/14 10/26/16 History 10] Montelukast [Singulair] 10 mg PO HS 12/11/14 10/26/16 History Multivitamins, Thera [Theragran] 1 each PO DAILY@1200 12/11/14 10/26/16 History Omeprazole [PriLOSEC] 20 mg PO DAILY 12/11/14 10/26/16 History Timolol 0.25% Ophth Soln [Timoptic] 1 drop BOTH EYES DAILY 12/11/14 10/26/16 History rOPINIRole HCL [Requip] 1 mg PO DAILY 12/11/14 10/26/16 History Acetaminophen Tab [Tylenol Tab] 650 mg PO Q6H PRN 10/26/16 10/26/16 History Allevyn Patch 1 patch TOPICAL Q12H 10/26/16 10/26/16 History Ammonium Lactate Lotion 1 applic TOPICAL BID 10/26/16 10/26/16 History [Lac-Hydrin 12% Lotion] Benzonatate [Tessalon Perles] 200 mg PO TID 10/26/16 10/26/16 History Budesonide [Pulmicort] 1 mg INHALATION RT-BID 10/26/16 10/26/16 History Chlorthalidone [Hygroton] 25 mg PO DAILY 10/26/16 10/26/16 History Clindamycin HCl 300 mg PO Q8H 10/26/16 10/26/16 History Dimethicone/Zinc Oxide [Inzo Zinc 1 applic TOPICAL BID 10/26/16 10/26/16 History Oxide Barrier Cream] Doxycycline Hyclate 100 mg PO BID 10/26/16 10/26/16 History Insulin Aspart [NovoLOG] 15 unit SQ AC-LUNCH 10/26/16 10/26/16 History Insulin Aspart [NovoLOG] 15 unit SQ AC-SUPPER 10/26/16 10/26/16 History Insulin Aspart [NovoLOG] 18 unit SQ AC-BRKFST 10/26/16 10/26/16 History Insulin Detemir [Levemir] 30 unit SQ BID 10/26/16 10/26/16 History Ipratropium-Albuterol Nebulize 3 ml INHALATION RT-Q4H 10/26/16 10/26/16 History [Duoneb 0.5 mg-3 mg/3 ml Soln] Isosorbide Mononitrate ER [Imdur] 60 mg PO DAILY 10/26/16 10/26/16 History Latanoprost [Xalatan 0.005%] 1 drop BOTH EYES HS 10/26/16 10/26/16 History Levothyroxine Sodium [Synthroid] 125 mcg PO DAILY 10/26/16 10/26/16 History Losartan Potassium [Cozaar] 100 mg PO DAILY 10/26/16 10/26/16 History Melatonin 6 mg PO HS 10/26/16 10/26/16 History Metoprolol Tartrate [Lopressor] 12.5 mg PO DAILY 10/26/16 10/26/16 History Nitroglycerin Sl Tabs [Nitrostat] 0.4 mg SUBLINGUAL Q5M PRN 10/26/16 10/26/16 History Oyster-Maurice 500mg Tab 1 tab PO DAILY 10/26/16 10/26/16 History Sennosides-Docusate Sodium 1 tab PO DAILY 10/26/16 10/26/16 History [Senokot-S] amLODIPine [Norvasc] 5 mg PO DAILY 10/26/16 10/26/16 History guaiFENesin [Mucinex] 600 mg PO Q12H 10/26/16 10/26/16 History hydrALAZINE HCL [Apresoline] 100 mg PO Q8H 10/26/16 10/26/16 History predniSONE 10 mg PO DAILY 10/26/16 10/26/16 History Oxybutynin ER [Ditropan Xl] 15 mg PO HS 10/27/16 10/27/16 History Allergies Allergy/AdvReac Type Severity Reaction Status Date / Time amoxicillin Allergy Rash/Hives Verified 10/26/16 21:24 lisinopril Allergy Wheezing Verified 10/26/16 21:24 Sulfa (Sulfonamide Allergy Rash/Hives Verified 10/26/16 21:24 Antibiotics) alprazolam [From Xanax] AdvReac Hallucinati Verified 10/26/16 21:24 ons morphine AdvReac Hallucinati Verified 10/26/16 21:24 ons Physical Exam Vitals: Vital Signs Temp Pulse Pulse Resp BP BP Pulse Ox 10/28/16 15:23 74 10/28/16 15:09 70 10/28/16 09:36 72 10/28/16 09:23 68 10/28/16 08:00 71 16 10/28/16 07:00 97.0 F L 71 16 161/72 96 10/28/16 00:30 97.3 F L 74 20 136/61 96 10/27/16 20:13 78 10/27/16 19:52 78 10/27/16 17:16 78 10/27/16 17:04 74 Intake and Output 10/28/16 10/28/16 10/28/16 06:59 14:59 22:59 Intake Total 250 Balance 250 Intake: Oral 250 Other: # Voids 2 1 # Bowel Movements 1 Weight 81 kg GENERAL EXAM: Alert, oriented times one, comfortable in no apparent distress. Pale. HEAD: Normocephalic. EYES: Normal reaction of pupils, equal size. NOSE: Clear with pink turbinates. THROAT: There is crowding of the posterior pharynx. No erythema or exudates. NECK: No masses, no JVD. CHEST: No chest wall deformity. LUNGS: Equal air entry few scattered rhonchi. Diminished.. CVS: S1 and S2 normal with no audible murmurs, regular rhythm. ABDOMEN: soft, nontender, normal bowel sounds, no guarding or rigidity. extremities: There is trace peripheral edema. No clubbing, no cyanosis. Peripheral pulses are intact. Results - Laboratory Findings CBC and BMP: 10/28/16 08:43 10/28/16 08:43 PT/INR, D-dimer PT 11.3 sec (9.0-12.0) 10/26/16 22:15 INR 1.1 (<1.1) 10/26/16 22:15 D-Dimer 1.19 mg/L FEU (<0.60) H 10/26/16 22:15 Abnormal lab findings: Abnormal Labs 10/27/16 10/27/16 10/27/16 01:55 03:23 07:49 WBC RBC Hgb Hct MCHC RDW Plt Count Potassium BUN Creatinine Glucose POC Glucose (mg/dL) 201 H 235 H Hemoglobin A1c Calcium Total Creatine Kinase <20 L Troponin I 0.062 H* Total Protein Albumin 10/27/16 10/27/16 10/27/16 09:28 09:28 09:28 WBC 16.5 H RBC 3.47 L Hgb 9.2 L Hct 30.9 L MCHC 29.7 L RDW 18.1 H Plt Count 65 L Potassium BUN Creatinine Glucose POC Glucose (mg/dL) Hemoglobin A1c 8.8 H Calcium Total Creatine Kinase <20 L Troponin I 0.048 H* Total Protein Albumin 10/27/16 10/27/16 10/27/16 09:28 11:37 21:17 WBC RBC Hgb Hct MCHC RDW Plt Count Potassium BUN 33 H Creatinine 1.11 H Glucose 244 H POC Glucose (mg/dL) 211 H 213 H Hemoglobin A1c Calcium Total Creatine Kinase Troponin I Total Protein 4.6 L Albumin 2.3 L 10/28/16 10/28/16 10/28/16 07:30 08:43 08:43 WBC 12.2 H RBC 3.36 L Hgb 8.8 L Hct 29.5 L MCHC 29.8 L RDW 18.0 H Plt Count 51 L Potassium 3.3 L BUN 34 H Creatinine Glucose 228 H POC Glucose (mg/dL) 221 H Hemoglobin A1c Calcium 8.2 L Total Creatine Kinase Troponin I Total Protein 4.5 L Albumin 2.3 L 10/28/16 12:10 WBC RBC Hgb Hct MCHC RDW Plt Count Potassium BUN Creatinine Glucose POC Glucose (mg/dL) 156 H Hemoglobin A1c Calcium Total Creatine Kinase Troponin I Total Protein Albumin - Diagnostic Findings Chest x-ray: image reviewed Assessment and Plan Plan: Impression: #1 Altered mental status of unclear etiology. She does have a history of vascular dementia. There is a new right occipital infarct noted on the computed tomography scan of the brain. There is basilar infiltrate and some of which is chronic in nature however she did have significant leukocytosis on admission and healthcare acquired pneumonia is to be considered. #2 Leukocytosis secondary to above initially 28.4, currently 12.2. She has been maintained on cefepime, Levaquin and vancomycin. #3 Acute exacerbation of diastolic congestive heart failure. #4 Acute exacerbation of chronic moderate persistent bronchial asthma. #5 Anemia, hemoglobin trending down. Currently 8.8. #6 History of obstructive sleep apnea, not utilizing her CPAP in the outpatient setting. #7 Tracheobronchomalacia. #8 History of MRSA pneumonia. #9diabetes mellitus, type II. #10 Hypertension. #11 Hyperlipidemia. #12 Hypothyroidism. #13 Coronary artery disease with previous stent placement and small troponin leak. Plan: The patient was seen and evaluated by Dr. Schaffer. Her chest x-rays and labs were reviewed. We'll continue with her current medications including bronchodilators every 4 hours, Pulmicort, IV Solu-Medrol and Singulair. Remains on antibiotics in the form of cefepime, Levaquin and vancomycin.she remains off heparin secondary to thrombocytopenia.Wes on Protonix for GI prophylaxis. We will continue to follow make further recommendations based on her clinical status.
[2016-10-28 16:58] LABS: Glucose,Whole Blood 94 mg/dL (75-99)
[2016-10-28] MEDS ORDERED: LEVOFLOXACIN 750MG-D5W PMX 750 MG in DEXTROSE/WATER 1 150ML.BAG IVPB SCH (21:00)
[2016-10-28] MEDS: MELATONIN 3 MG TABLET PO SCH (21:13)
[2016-10-28] MEDS: ATORVASTATIN 20 MG TAB PO SCH (21:13)
[2016-10-28] MEDS: OXYBUTYNIN 15 MG TAB.ER.24 PO SCH (21:13)
[2016-10-28] MEDS: MONTELUKAST 10 MG TAB PO SCH (21:13)
[2016-10-28] MEDS: LATANOPROST 0.005% OPHTH DROPS 2.5 ML BTL BOTH EYES SCH (21:14)
[2016-10-28 21:30] LABS: Glucose,Whole Blood 140 mg/dL (75-99)
[2016-10-29] MEDS: PROMETHAZ-COD 6.25-10 MG/5 ML 5 ML CUP PO PRN (00:03)
[2016-10-29] MEDS ORDERED: VANCOMYCIN 1,500 MG in SODIUM CHLORIDE 0.9% 250 ML IVPB SCH (06:00)
[2016-10-29] MEDS: LEVOTHYROXINE 125 MCG TAB PO SCH (06:20)
[2016-10-29 07:26] LABS: Glucose,Whole Blood 213 mg/dL (75-99)
[2016-10-29] MEDS: IPRATROPIUM-ALBUTEROL 3 ML NEB INHALATION SCH ×4 (07:30→20:36)
[2016-10-29] MEDS: BUDESONIDE 1 MG/2 ML NEBU INHALATION SCH ×2 (07:30→20:36)
[2016-10-29] MEDS: methylPREDNISolone SOD SUCCI 40 MG/ML 1 ML VIAL IV SCH ×2 (08:13→16:13)
[2016-10-29] MEDS: PANTOPRAZOLE 40 MG TABLET PO SCH (08:13)
[2016-10-29] MEDS: BENZONATATE 100 MG CAP PO SCH ×3 (08:14→20:54)
[2016-10-29] MEDS: amLODIPine 5 MG TAB PO SCH (08:14)
[2016-10-29] MEDS: ASPIRIN 81 MG CHEW PO SCH (08:14)
[2016-10-29] MEDS: GABAPENTIN 300 MG CAP PO SCH ×3 (08:14→20:54)
[2016-10-29] MEDS: guaiFENesin 600 MG TABLET.ER PO SCH ×2 (08:15→20:35)
[2016-10-29] MEDS: METOPROLOL TARTRATE 12.5 MG TAB PO SCH (08:15)
[2016-10-29] MEDS: ISOSORBIDE MONONITRATE ER 60 MG TAB.ER.24H PO SCH (08:15)
[2016-10-29] MEDS: LOSARTAN 50 MG TAB PO SCH (08:15)
[2016-10-29] MEDS: SENNOSIDES-DOCUSATE SODIUM 1 EACH TAB PO SCH (08:15)
[2016-10-29] MEDS: hydrALAZINE HCL 50 MG TAB PO SCH ×2 (08:15→17:33)
[2016-10-29] MEDS: TIMOLOL 0.25% OPHTH DROPS 5 ML BTL BOTH EYES SCH (08:15)
[2016-10-29] MEDS: INSULIN DETEMIR 100 UNIT/ML 10 ML VIAL SQ SCH ×2 (08:15→20:54)
[2016-10-29] MEDS: INSULIN LISPRO (humaLOG) 300 UNIT/3 ML VIAL SQ SCH ×7 (08:16→20:54)
[2016-10-29] MEDS: AMMONIUM LACTATE 12% LOTION 225 GM BTL TOPICAL SCH ×2 (08:19→20:35)
[2016-10-29 09:33] LABS: Anisocytosis Slight; CH 25.7; CHCM 30.1; HCT 33.1 % (34.0-46.0); HDW 2.66; HGB 10.3 gm/dL (11.4-16.0); Hypochromasia Moderate; MCH 26.6 pg (25.0-35.0); MCHC 31.1 g/dL (31.0-37.0); MCV 85.4 fL (80.0-100.0); Mean Platelet Volume 9.1; RBC 3.87 m/uL (3.80-5.40); RDW 17.2 % (11.5-15.5); WBC 8.3 k/uL (3.8-10.6)
[2016-10-29] MEDS: CEFEPIME 1 GM in SODIUM CHLORIDE 0.9% 50 ML IVPB SCH (09:41)
[2016-10-29 10:08] LABS: ALT 20 U/L (9-52); AST 17 U/L (14-36); Alkaline Phosphatase 63 U/L (38-126); Anion Gap 11 mmol/L; Blood Urea Nitrogen 42 mg/dL (7-17); Calcium 8.8 mg/dL (8.4-10.2); Carbon Dioxide 27 mmol/L (22-30); Chloride 102 mmol/L (98-107); Glucose 181 mg/dL (74-99); Non-African American GFR(MDRD) 55 (>60 ml/min/1.73 sqM); Potassium 3.2 mmol/L (3.5-5.1); Sodium 140 mmol/L (137-145); Total Bilirubin 0.4 mg/dL (0.2-1.3)
[2016-10-29 11:20] LABS: Glucose,Whole Blood 221 mg/dL (75-99)
[2016-10-29] MEDS ORDERED: IBUPROFEN 400 MG TAB PO PRN (11:54)
[2016-10-29] MEDS: MULTIVITAMINS, THERA 1 EACH TAB PO SCH (12:21)
[2016-10-29] MEDS: CALCIUM CARBONATE 500 MG CHEWABLE PO SCH (12:22)
[2016-10-29] MEDS: FLUCONAZOLE 150 MG TAB PO SCH (12:22)
--- NOTE | 2016-10-29 15:09 | P.PN ---
Subjective This is a pleasant 86-year-old female patient who follows with Dr. Hollis is her primary care physician. she has a history of diabetes mellitus, uterine cancer, gastroesophageal reflux disease, hyperlipidemia, hypertension, coronary artery disease with previous stent placement ,hypothyroidism. She is followed by our group in regards to her pulmonary disease. She has chronic bronchial asthma. she is a lifelong nonsmoker. She does have a previous history of MRSA infection in bronchial wash back in 2014. She is also noted to have significant tracheobronchomalacia. She has had multiple admissions to [facility] family seen her there most recently. She presented here on 10/26/2016 with altered mental status. She has been residing in an extended care facility. The patient herself is a poor historian. She is unclear as to where she is at or to why she is here. Presently, she denies any worsening shortness of breath, cough or congestion. No chest pain, palpitations lightheadedness or dizziness. Her only complaint is that of lower extremity weakness. a computed tomography scan of the brain did reveal a right occipital infarct there was new from 2012. There was atrophy and chronic small vessel disease. her chest x-ray revealed evidence of bibasilar atelectasis and some mild pulmonary congestion. She has been afebrile. her initial white count was 28.4. Maintaining good O2 saturations in the mid 90s on 2 L/m. She is not tachycardic nor tachypneic. her influenza screen was negative. She had borderline troponins. Blood cultures reveal no growth to date.\ The patient is seen again today 10/29/2016 in follow-up. She is awake and alert in no acute distress. She is disoriented to place and time. She denies any worsening shortness of breath. She does continue with a dry nonproductive cough. She is maintaining good O2 saturations in the upper 90s on 2 L/m per nasal cannula. Currently afebrile. No leukocytosis. She states she is breathing easier today as compared to yesterday. Objective - Vital Signs Vital signs: Vital Signs Temp 97.3 F L 10/29/16 07:00 Pulse 76 10/29/16 11:32 Resp 18 10/29/16 07:00 BP 128/67 10/29/16 07:00 Pulse Ox 100 10/29/16 07:00 Intake & Output 10/28/16 10/29/16 10/29/16 18:59 06:59 18:59 Weight 77.5 kg Other: Voiding Method Toilet Diaper # Voids 1 0 # Bowel Movements 1 - Exam GENERAL EXAM: Alert, comfortable in no apparent distress. HEAD: Normocephalic. EYES: Normal reaction of pupils, equal size. NOSE: Clear with pink turbinates. THROAT: No erythema or exudates. NECK: No masses, no JVD. CHEST: No chest wall deformity. LUNGS: Equal air entry with bilateral end expiratory wheeze. Diminished.. CVS: S1 and S2 normal with no audible murmurs, regular rhythm. ABDOMEN: No hepatosplenomegaly, normal bowel sounds, no guarding or rigidity. Extremities: There is no significant peripheral edema. No clubbing, no cyanosis. Peripheral pulses are intact. - Labs CBC & Chem 7: 10/29/16 08:56 10/29/16 08:56 Labs: Abnormal Lab Results - Last 24 Hours (Table) 10/28/16 10/29/16 10/29/16 Range/Units 21:20 07:22 08:56 Hgb 10.3 L (11.4-16.0) gm/dL Hct 33.1 L (34.0-46.0) % RDW 17.2 H (11.5-15.5) % Plt Count 65 L (150-450) k/uL Potassium (3.5-5.1) mmol/L BUN (7-17) mg/dL Glucose (74-99) mg/dL POC Glucose (mg/dL) 140 H 213 H (75-99) mg/dL Total Protein (6.3-8.2) g/dL Albumin (3.5-5.0) g/dL 10/29/16 10/29/16 Range/Units 08:56 11:16 Hgb (11.4-16.0) gm/dL Hct (34.0-46.0) % RDW (11.5-15.5) % Plt Count (150-450) k/uL Potassium 3.2 L (3.5-5.1) mmol/L BUN 42 H (7-17) mg/dL Glucose 181 H (74-99) mg/dL POC Glucose (mg/dL) 221 H (75-99) mg/dL Total Protein 5.0 L (6.3-8.2) g/dL Albumin 2.5 L (3.5-5.0) g/dL Microbiology - Last 24 Hours (Table) 10/27/16 00:07 Blood Culture - Preliminary Blood No Growth after 48 hours Assessment and Plan Plan: Impression: #1 Altered mental status of unclear etiology. She does have a history of vascular dementia. There is a new right occipital infarct noted on the computed tomography scan of the brain. There is basilar infiltrate and some of which is chronic in nature however she did have significant leukocytosis on admission and healthcare acquired pneumonia is to be considered. #2 Leukocytosis secondary to above initially 28.4, currently 12.2. She has been maintained on cefepime, Levaquin and vancomycin. #3 Acute exacerbation of diastolic congestive heart failure. #4 Acute exacerbation of chronic moderate persistent bronchial asthma. #5 Anemia, hemoglobin trending down. Currently 8.8. #6 History of obstructive sleep apnea, not utilizing her CPAP in the outpatient setting. #7 Tracheobronchomalacia. #8 History of MRSA pneumonia. #9diabetes mellitus, type II. #10 Hypertension. #11 Hyperlipidemia. #12 Hypothyroidism. #13 Coronary artery disease with previous stent placement and small troponin leak. Plan: The patient was seen and evaluated by Dr. Schaffer. The patient is better today as compared to yesterday. We'll continue with her current medications including bronchodilators, Singulair, Pulmicort inhalations and IV Solu-Medrol. She is on Phenergan with codeine for her cough. She remains on antibiotics in the form of cefepime, Levaquin and vancomycin. She remains off heparin secondary to thrombocytopenia. Continue Protonix for GI prophylaxis. We will continue to follow make further recommendations based on her clinical status.
--- NOTE | 2016-10-29 16:11 | P.PN ---
Subjective This is an 86-year-old female patient of Dr. 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 She was recently hospitalized at [facility] from 10/10/2016 through 10/19/2016. She was treated for urinary tract infection , acute coronary syndrome, COPD exacerbation. She was then discharged to [facility] for subacute rehab. Patient was found to have mental status changes and was sent to [facility] emergency center for evaluation. It was noted she also had a fever at the [facility]. She was hypotensive in the emergency center with leukocytosis of 28.4. CAT scan of the brain showed atrophy and chronic small vessel disease. 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 Chest x-ray showed lower lobe infiltrate and possible mild heart failure and mild pleural effusion. Patient was admitted to medical floor for pneumonia, sepsis and altered mental status. 10/28: Patient is seen today sitting up in a chair at the bedside and is much more alert today. She apparently ate her breakfast well and had a good appetite. White count is down to 12.2, hemoglobin 8.8, platelet count 51. Potassium is low today at 3.3 and will be replaced. BUN 34 and creatinine 1.01. Blood sugars running 156-222. 10/29: Patient is following sitting up in a chair and mental status is much improved. Patient is interactive and talkative today. Hemoglobin is at 10.3, BUN 42 and creatinine 0.96. Potassium 4.2 and will be replaced. Breathing status is improving. Solu-Medrol will be completed today and patient started on prednisone tomorrow. Urine culture is showing Radha. Blood culture no growth. Anticipate discharge back to [facility] on Wednesday. Objective - Vital Signs Vital signs: Vital Signs Temp 97.3 F L 10/29/16 07:00 Pulse 76 10/29/16 11:32 Resp 18 10/29/16 07:00 BP 128/67 10/29/16 07:00 Pulse Ox 100 10/29/16 07:00 Intake & Output 10/28/16 10/29/16 10/29/16 18:59 06:59 18:59 Weight 77.5 kg Other: Voiding Method Toilet Diaper # Voids 1 0 # Bowel Movements 1 - Exam Gen: This is a obese 86-year-old female. HEENT: Head is atraumatic, normocephalic. Pupils equal, round. Sclerae is anicteric. NECK: Supple. No JVD. No lymphadenopathy. No thyromegaly. LUNGS: Scattered rhonchi throughout.. No intercostal retractions. HEART: Regular rate and rhythm. Systolic murmur. ABDOMEN: Soft. Bowel sounds are present. No masses. No tenderness. EXTREMITIES: Trace bilateral pedal edema. No calf tenderness. NEUROLOGICAL: Patient is awake, alert and oriented x2. Cranial nerves 2 through 12 are grossly intact. - Labs CBC & Chem 7: 10/29/16 08:56 10/29/16 08:56 Labs: Abnormal Lab Results - Last 24 Hours (Table) 10/28/16 10/28/16 10/29/16 Range/Units 12:10 21:20 07:22 Hgb (11.4-16.0) gm/dL Hct (34.0-46.0) % RDW (11.5-15.5) % Plt Count (150-450) k/uL Potassium (3.5-5.1) mmol/L BUN (7-17) mg/dL Glucose (74-99) mg/dL POC Glucose (mg/dL) 156 H 140 H 213 H (75-99) mg/dL Total Protein (6.3-8.2) g/dL Albumin (3.5-5.0) g/dL 10/29/16 10/29/16 10/29/16 Range/Units 08:56 08:56 11:16 Hgb 10.3 L (11.4-16.0) gm/dL Hct 33.1 L (34.0-46.0) % RDW 17.2 H (11.5-15.5) % Plt Count 65 L (150-450) k/uL Potassium 3.2 L (3.5-5.1) mmol/L BUN 42 H (7-17) mg/dL Glucose 181 H (74-99) mg/dL POC Glucose (mg/dL) 221 H (75-99) mg/dL Total Protein 5.0 L (6.3-8.2) g/dL Albumin 2.5 L (3.5-5.0) g/dL Microbiology - Last 24 Hours (Table) 10/27/16 00:07 Blood Culture - Preliminary Blood No Growth after 48 hours Assessment and Plan Plan: 1. Metabolic encephalopathy with pneumonia and sepsis along with mild heart failure and small pleural effusions. Continue cefepime, Levaquin and vancomycin , DuoNeb treatments every 4 hours scheduled and as needed, Tessalon Perles 3 times daily, Pulmicort twice daily, Mucinex and Phenergan with codeine, Singulair. Solu-Medrol 40 mg every 8 hours and start prednisone in the morning. Consult with pulmonary medicine 2. Recent urinary tract infection. Patient was on clindamycin and doxycycline , discontinued for now. 3. Chronic diastolic heart failure. 4. COPD with mild exacerbation and history of recent MRSA pneumonia, continue as in #1. 5. Diabetes mellitus type 2, insulin requiring with diabetic neuropathy. Continue Levemir twice daily, scheduled Humalog and Humalog scale. Continue gabapentin. 6. Hyperlipidemia. Continue Lipitor. 7. Hypertension, hypertensive cardiovascular disease. Continue Norvasc, hydralazine, Cozaar, Lopressor. [place]groton on hold. 8. Glaucoma. Continue eyedrops. 9. Hyperkalemia status post Kayexalate. 10. Elevated troponins with recent acute coronary syndrome. Continue aspirin 81 mg daily, Lipitor 20 mg at bedtime, metoprolol 12.5 mg daily 11. Chronic kidney disease stage III. 12. Vascular dementia without behavioral disturbance, stable. 13. Secondary thrombocytopenia. Heparin will be discontinued. 14. Major depressive disorder, recurrent. 15. DVT prophylaxis. Heparin discontinued due to thrombocytopenia. SCDs and MARIA ALEJANDRA hose. 16. Gastrointestinal prophylaxis. Continue Protonix. Patient will be admitted to the hospital for a minimum of 2 night stay. Discharge plan: Return to [facility] on Wednesday Impression and plan of care have been directed as dictated by the signing physician. Sherron Benton nurse practitioner acting as scribe for signing physician. Time with Patient: Greater than 30
[2016-10-29 17:11] LABS: Glucose,Whole Blood 191 mg/dL (75-99)
[2016-10-29] MEDS: LATANOPROST 0.005% OPHTH DROPS 2.5 ML BTL BOTH EYES SCH (20:35)
[2016-10-29] MEDS: ATORVASTATIN 20 MG TAB PO SCH (20:35)
[2016-10-29] MEDS: MONTELUKAST 10 MG TAB PO SCH (20:36)
[2016-10-29] MEDS: MELATONIN 3 MG TABLET PO SCH (20:36)
[2016-10-29] MEDS: OXYBUTYNIN 15 MG TAB.ER.24 PO SCH (20:37)
[2016-10-29 21:09] LABS: Glucose,Whole Blood 184 mg/dL (75-99)
[2016-10-30] MEDS: hydrALAZINE HCL 50 MG TAB PO SCH ×2 (00:48→07:51)
[2016-10-30] MEDS: LEVOTHYROXINE 125 MCG TAB PO SCH (06:20)
[2016-10-30] MEDS: BUDESONIDE 1 MG/2 ML NEBU INHALATION SCH (06:58)
[2016-10-30] MEDS: IPRATROPIUM-ALBUTEROL 3 ML NEB INHALATION SCH ×2 (06:58→11:09)
[2016-10-30 07:45] LABS: Glucose,Whole Blood 212 mg/dL (75-99)
[2016-10-30] MEDS: TIMOLOL 0.25% OPHTH DROPS 5 ML BTL BOTH EYES SCH (07:50)
[2016-10-30] MEDS: FLUCONAZOLE 150 MG TAB PO SCH (07:50)
[2016-10-30] MEDS: CEFEPIME 1 GM in SODIUM CHLORIDE 0.9% 50 ML IVPB SCH (07:50)
[2016-10-30] MEDS: METOPROLOL TARTRATE 12.5 MG TAB PO SCH (07:51)
[2016-10-30] MEDS: BENZONATATE 100 MG CAP PO SCH (07:51)
[2016-10-30] MEDS: ISOSORBIDE MONONITRATE ER 60 MG TAB.ER.24H PO SCH (07:51)
[2016-10-30] MEDS: GABAPENTIN 300 MG CAP PO SCH (07:51)
[2016-10-30] MEDS: ASPIRIN 81 MG CHEW PO SCH (07:52)
[2016-10-30] MEDS: PANTOPRAZOLE 40 MG TABLET PO SCH (07:52)
[2016-10-30] MEDS: LOSARTAN 50 MG TAB PO SCH (07:52)
[2016-10-30] MEDS: INSULIN LISPRO (humaLOG) 300 UNIT/3 ML VIAL SQ SCH ×4 (07:53→12:35)
[2016-10-30] MEDS: guaiFENesin 600 MG TABLET.ER PO SCH (07:53)
[2016-10-30] MEDS: amLODIPine 5 MG TAB PO SCH (07:53)
[2016-10-30] MEDS: AMMONIUM LACTATE 12% LOTION 225 GM BTL TOPICAL SCH (07:54)
[2016-10-30] MEDS: INSULIN DETEMIR 100 UNIT/ML 10 ML VIAL SQ SCH (07:59)
[2016-10-30] MEDS: SENNOSIDES-DOCUSATE SODIUM 1 EACH TAB PO SCH (07:59)
[2016-10-30 08:21] VITALS: BP 148/89; RESP 20; TEMP 97.8
[2016-10-30] MEDS ORDERED: predniSONE 20 MG TAB PO SCH (09:00)
[2016-10-30 09:44] LABS: Anisocytosis Slight; CH 25.8; CHCM 30.3; HDW 2.75; HGB 9.5 gm/dL (11.4-16.0); Hypochromasia Moderate; MCH 26.2 pg (25.0-35.0); MCHC 30.7 g/dL (31.0-37.0); MCV 85.5 fL (80.0-100.0); Mean Platelet Volume 9.4; RBC 3.62 m/uL (3.80-5.40); RDW 17.7 % (11.5-15.5); WBC 4.9 k/uL (3.8-10.6)
--- NOTE | 2016-10-30 10:32 | P.DS ---
Providers Date of admission: 10/26/16 23:51 Expected date of discharge: 10/30/16 Attending physician: Vinec Valadez [facility] Course: This is an 86-year-old female patient of Dr. 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 She was recently hospitalized at [facility] from 10/10/2016 through 10/19/2016. She was treated for urinary tract infection , acute coronary syndrome, COPD exacerbation. She was then discharged to [facility] for subacute rehab. Patient was found to have mental status changes and was sent to [facility] emergency center for evaluation. It was noted she also had a fever at the [place]. She was hypotensive in the emergency center with leukocytosis of 28.4. CAT scan of the brain showed atrophy and chronic small vessel disease. 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 Chest x-ray showed lower lobe infiltrate and possible mild heart failure and mild pleural effusion. Patient was admitted to medical floor for pneumonia, sepsis and altered mental status. 10/28: Patient is seen today sitting up in a chair at the bedside and is much more alert today. She apparently ate her breakfast well and had a good appetite. White count is down to 12.2, hemoglobin 8.8, platelet count 51. Potassium is low today at 3.3 and will be replaced. BUN 34 and creatinine 1.01. Blood sugars running 156-222. 10/29: Patient is following sitting up in a chair and mental status is much improved. Patient is interactive and talkative today. Hemoglobin is at 10.3, BUN 42 and creatinine 0.96. Potassium 4.2 and will be replaced. Breathing status is improving. Solu-Medrol will be completed today and patient started on prednisone tomorrow. Urine culture is showing Radha. Blood culture no growth. Anticipate discharge back to [facility] on Wednesday. 10/30: Patient's breathing status is stable. She will be discharged back to [facility] in stable condition. Discharge Diagnoses: 1. Metabolic encephalopathy with pneumonia and sepsis along with mild heart failure and small pleural effusions. 2. Recent urinary tract infection. 3. Chronic diastolic heart failure. 4. COPD with mild exacerbation and history of recent MRSA pneumonia 5. Diabetes mellitus type 2, insulin requiring with diabetic neuropathy. 6. Hyperlipidemia. 7. Hypertension, hypertensive cardiovascular disease. 8. Glaucoma. 9. Hyperkalemia status post Kayexalate. 10. Elevated troponins with recent acute coronary syndrome. 11. Chronic kidney disease stage III. 12. Vascular dementia without behavioral disturbance, stable. 13. Secondary thrombocytopenia. 14. Major depressive disorder, recurrent. Discharge plan: Return to [facility] on Wednesday Impression and plan of care have been directed as dictated by the signing physician. Sherron Benton nurse practitioner acting as scribe for signing physician. Patient Condition at Discharge: Good Plan - Discharge Summary New Discharge Prescriptions: Fluconazole [Diflucan] 150 mg PO DAILY #7 tab HYDROcodone/APAP 10-325MG [[place] 10-325] 1 tab PO QID #100 tab predniSONE 0 mg PO DIRECTED #40 tab Discharge Medication List Aspirin EC [Ecotrin Low Dose] 81 mg PO DAILY 12/11/14 [History] Atorvastatin [Lipitor] 20 mg PO HS 12/11/14 [History] Gabapentin [Neurontin] 300 mg PO TID 12/11/14 [History] Montelukast [Singulair] 10 mg PO HS 12/11/14 [History] Multivitamins, Thera [Multivitamin] 1 each PO DAILY@1200 12/11/14 [History] Omeprazole [PriLOSEC] 20 mg PO DAILY 12/11/14 [History] Timolol 0.25% Ophth Soln [Timoptic 0.25% Ophth Soln] 1 drop BOTH EYES DAILY 03/20 [History] rOPINIRole HCL [Requip] 1 mg PO DAILY 12/11/14 [History] Acetaminophen Tab [Tylenol] 650 mg PO Q6H PRN 10/26/16 [History] Allevyn Patch 1 patch TOPICAL Q12H 10/26/16 [History] Ammonium Lactate Lotion [Lac-Hydrin 12% Lotion] 1 applic TOPICAL BID 10/26/16 [ History] Benzonatate [Tessalon Perles] 200 mg PO TID 10/26/16 [History] Budesonide [Pulmicort] 1 mg INHALATION RT-BID 10/26/16 [History] Dimethicone/Zinc Oxide [Inzo Zinc Oxide Barrier Cream] 1 applic TOPICAL BID [History] Doxycycline Hyclate 100 mg PO BID 10/26/16 [History] Insulin Aspart [NovoLOG] 15 unit SQ AC-LUNCH 10/26/16 [History] Insulin Aspart [NovoLOG] 15 unit SQ AC-SUPPER 10/26/16 [History] Insulin Aspart [NovoLOG] 18 unit SQ AC-BRKFST 10/26/16 [History] Insulin Detemir [Levemir] 30 unit SQ BID 10/26/16 [History] Isosorbide Mononitrate ER [Imdur] 60 mg PO DAILY 10/26/16 [History] Latanoprost [Xalatan 0.005%] 1 drop BOTH EYES HS 10/26/16 [History] Levothyroxine Sodium [Synthroid] 125 mcg PO DAILY 10/26/16 [History] Losartan Potassium [Cozaar] 100 mg PO DAILY 10/26/16 [History] Melatonin 6 mg PO HS 10/26/16 [History] Metoprolol Tartrate [Lopressor] 12.5 mg PO DAILY 10/26/16 [History] Nitroglycerin Sl Tabs [Nitrostat] 0.4 mg SUBLINGUAL Q5M PRN 10/26/16 [History] Oyster-Maurice 500mg Tab 1 tab PO DAILY 10/26/16 [History] Sennosides-Docusate Sodium [Senokot-S] 1 tab PO DAILY 10/26/16 [History] amLODIPine [Norvasc] 5 mg PO DAILY 10/26/16 [History] guaiFENesin [Mucinex] 600 mg PO Q12H 10/26/16 [History] hydrALAZINE HCL [Apresoline] 100 mg PO Q8H 10/26/16 [History] Oxybutynin ER [Ditropan Xl] 15 mg PO HS 10/27/16 [History] Chlorthalidone [Hygroton] 25 mg PO DAILY PRN #0 10/30/16 [Rx] Fluconazole [Diflucan] 150 mg PO DAILY #7 tab 10/30/16 [Rx] HYDROcodone/APAP 10-325MG [[place] 10-325] 1 tab PO QID #100 tab 10/30/16 [Rx] INSULIN LISPRO (humaLOG) [humaLOG (formulary)] 0 unit SQ ACHS vial 10/30/16 [Rx ] Ipratropium-Albuterol Nebulize [Duoneb 0.5 mg-3 mg/3 ml Soln] 3 ml INHALATION RT -Q4H PRN #0 ampul.neb 10/30/16 [Rx] Ipratropium-Albuterol Nebulize [Duoneb 0.5 mg-3 mg/3 ml Soln] 3 ml INHALATION RT -QID ampul.neb 10/30/16 [Rx] predniSONE 0 mg PO DIRECTED #40 tab 10/30/16 [Rx] Follow up Appointment(s)/Referral(s): Lisandro Hollis MD [Primary Care Provider] - 1 Week [facility], [NON-STAFF] - Patient Instructions/Handouts: Heart Failure (DC), Pneumonia (DC) Activity/Diet/Wound Care/Special Instructions: MRSA precautions. Up with walker, fall precautions. Cardiac, diabetic diet. Discharge Disposition: TRANSFER TO SNF/ECF
[2016-10-30 10:35] LABS: Anion Gap 12 mmol/L; Calcium 8.7 mg/dL (8.4-10.2); Carbon Dioxide 24 mmol/L (22-30); Chloride 103 mmol/L (98-107); Glucose 241 mg/dL (74-99); Non-African American GFR(MDRD) 58 (>60 ml/min/1.73 sqM); Sodium 139 mmol/L (137-145)
[2016-10-30 10:40] LABS: Blood Urea Nitrogen 45 mg/dL (7-17); Potassium 3.8 mmol/L (3.5-5.1)
[2016-10-30 11:20] VITALS: PULSE 78
[2016-10-30 12:06] LABS: Glucose,Whole Blood 244 mg/dL (75-99)
[2016-10-30] MEDS: MULTIVITAMINS, THERA 1 EACH TAB PO SCH (12:38)
[2016-10-30] MEDS: CALCIUM CARBONATE 500 MG CHEWABLE PO SCH (12:38)
--- NOTE | 2016-10-30 13:47 | CDI ---
In responding to this query, please exercise your independent professional judgment. The [facility] Coding Staff and Clinical Documentation Specialists appreciate your assistance in clarifying documentation, maintaining compliance with coding guidelines, accurately documenting patients condition and capturing severity of illness. The fact that a question is asked does not imply that any particular answer is desired or expected. Communication forms are a method of clarifying documentation and are not made part of the Legal Health Record. Thank you in advance for your clarification. Last Revision, July 2015 Steffany Syed [address] [facility] [place] [address] Documentation Clarification Form Date: 10/30/2016 1:30:00 PM From: Patricia Bender Admit Date: 10/26/2016 11:51:00 PM Patient Name: Smita Mendieta Visit Number: [id number] Discharge Date: Dr. Vince Valadez/Sherron Benton ATTRACTIONS ASSOCIATE-C Pneumonia was documented in your H&P and progress notes: History/Risk Factors: Asthma, Diastolic Heart failure, COPD, Diabetes type 2, hypertension Renal disease, Vascular Dementia, CKD stage III, MRSA Pneumonia Clinical Indicators: Patient had a fever at the assisted. She was hypotensive with leukocytosis of 28.4. She had mental status changes. Vital Signs: 95/44 94 20 99.4 92 % 3/L NC Chest x-ray: lower lobe infiltrate and possible mild heart failure and mild pleural effusion. Lung/Breathing assessment: cough, wheezes, scattered rhonchi throughout. Treatment: Antibiotics: Maxipime IV, Levaquin IV, Vancomycin IV O2 3/L (titrate) Breathing TX: Albuterol/Ipratropium Duoneb's, Pulmicort inhalation, Solu-Medrol IV (change to PO prednisone) In order to capture the severity of condition, please clarify if the condition signifies and you are treating for: Aspiration Pneumonia, identify if: Due to solids or liquids Due to anesthesia during L/D Bacterial Pneumonia, specify causal organism (if known) Gram Negative Pneumonia Due to Strep Due to Staph Due to E. Coli Other bacteria (specify) Viral Pneumonia, specify casual organism (if known) Healthcare Acquired Pneumonia/Pneumonia, unspecified Unable to determine Link any associated conditions to the pneumonia: Influenza with secondary gram negative pneumonia Sepsis due to pneumonia Acute respiratory failure due to pneumonia Other, please specify Please document in your progress notes and discharge summary in order to capture severity of illness and risk of mortality. Include clinical findings that support your diagnosis. FYI: Press F11 to launch patient chart. Place X here if this finding has no clinical significance, is not applicable or if you are not able to provide any additional documentation. POPPYD
[2016-10-30] MEDS ORDERED: LEVOFLOXACIN 750 MG TAB PO SCH (21:00)
== END 2016-10-30 14:03 | DRG 871 ==
LOC: EC 21:09 → EEVIPCON 23:51 → 4MS4W 23:51
PROVIDERS: ADMIT Internal Medicine; ATTEND Internal Medicine
DX: A41.9 Sepsis, unspecified organism (principal); G93.41 Metabolic encephalopathy; I50.33 Acute on chronic diastolic (congestive) heart failure; J18.9 Pneumonia, unspecified organism; J44.0 Chronic obstructive pulmonary disease with (acute) lower respiratory infection; I13.0 Hypertensive heart and chronic kidney disease with heart failure and stage 1 through stage 4 chronic kidney disease, or unspecified chronic kidney disease; J45.41 Moderate persistent asthma with (acute) exacerbation; F33.9 Major depressive disorder, recurrent, unspecified; J98.11 Atelectasis; E11.42 Type 2 diabetes mellitus with diabetic polyneuropathy; E11.22 Type 2 diabetes mellitus with diabetic chronic kidney disease; D69.59 Other secondary thrombocytopenia; E87.5 Hyperkalemia; D64.9 Anemia, unspecified; E03.9 Hypothyroidism, unspecified; E78.00 Pure hypercholesterolemia, unspecified; E78.5 Hyperlipidemia, unspecified; F01.50 Vascular dementia, unspecified severity, without behavioral disturbance, psychotic disturbance, mood disturbance, and anxiety; G25.81 Restless legs syndrome; G47.33 Obstructive sleep apnea (adult) (pediatric); H40.9 Unspecified glaucoma; I25.10 Atherosclerotic heart disease of native coronary artery without angina pectoris; J39.8 Other specified diseases of upper respiratory tract; K21.9 Gastro-esophageal reflux disease without esophagitis; N18.3 Chronic kidney disease, stage 3 (moderate); E66.9 Obesity, unspecified; G89.29 Other chronic pain; M54.9 Dorsalgia, unspecified; N39.3 Stress incontinence (female) (male); R74.8 Abnormal levels of other serum enzymes; E11.51 Type 2 diabetes mellitus with diabetic peripheral angiopathy without gangrene; Z79.4 Long term (current) use of insulin; Z79.82 Long term (current) use of aspirin; Z79.52 Long term (current) use of systemic steroids; Z79.899 Other long term (current) drug therapy; Z68.33 Body mass index [BMI] 33.0-33.9, adult; Z85.42 Personal history of malignant neoplasm of other parts of uterus; Z86.14 Personal history of Methicillin resistant Staphylococcus aureus infection; Z87.01 Personal history of pneumonia (recurrent); Z95.5 Presence of coronary angioplasty implant and graft; Z88.5 Allergy status to narcotic agent; Z88.0 Allergy status to penicillin; Z88.2 Allergy status to sulfonamides; Z88.8 Allergy status to other drugs, medicaments and biological substances; Z99.81 Dependence on supplemental oxygen
CPT/HCPCS: 36415; 70450; 71020; 80048; 80053; 81003; 82533; 82550; 82553; 83036; 83605; 83880; 84484; 85025; 85027; 85379; 85610; 85730; 87040; 87086; 87502; 93005; 94640; 96365; 96366; 96368; 99291